=== PATIENT | male | born 1960 | race Caucasian/White ===

== ENCOUNTER 2016-09-17 16:39 | Observation (INO) ==
[2016-09-17] MEDS ORDERED: ASPIRIN 325 MG TABLET PO STA (17:08)
[2016-09-17] MEDS ORDERED: LABETALOL 20 MG/4 ML SYRINGE IV STA (17:11)
--- NOTE | 2016-09-17 17:15 | EKG Report ---
Stationary ECG Study [facility] ER Test Date: 09/17/2016 4:53:15 PM Pat Name: GRICELDA MARCELINO Department: Room: Gender: M Supply Tech: : 1960 Requested by: Jesus Alexander Order Number: [id number] Reading MD: CHEVY FELIPE Intervals [place] Rate: 90 P: 63 [place]: 168 QRS: 13 QRSD: 97 T: 62 QT: 363 QTc: 411 Interpretive Statements SINUS RHYTHM POSSIBLE RIGHT ATRIAL ENLARGEMENT POSSIBLE LEFT ATRIAL ENLARGEMENT LEFT VENTRICULAR HYPERTROPHY AND ST-T CHANGE Electronically Signed On 09-18-16 14:14:34 SMALL STOCK FACER by CHEVY FELIPE [email or web address]
--- NOTE | 2016-09-17 17:15 | Emergency Department Note ---
Arrival - Arrival Chief Complaint: Chest Pain Stated Complaint: chest pain ED Nursing Triage Note: Patient arrived via ems with complaint of chest pain. States he woke up with chest pain and had defecated on himself. Reports nausea with episode. Denies any diaphoresis. EMS reports giving fentanyl and nitro x 4. Also was given asa 325mg. Pt with pmh of htn, cva, hepatitis c. Mode of Arrival: Stretcher Limitations: No Limitations Source: Patient Time Seen by Provider: 09/17/16 16:56 - History of Present Illness HPI Narrative: Patient complains of chest pain for the past 4-5 months, worse in the last few days and much worse since this morning. He describes it as left sided, waxing and waning and sharp. He states it radiates down his left arm. He has had some nausea but no vomiting or diaphoresis. He has had some shortness of breath. It is not clear how much of this is chronic and how much is new. He has a history of COPD. The pain is made worse by movement or change in position. He has a history of high blood pressure and CHF. No history of diabetes, high cholesterol or coronary artery disease. He had a cath done 3-4 years ago which reportedly showed no obstruction. He has a long history of heavy smoking. He has a family history of CAD over the age of 55. He reports no fever, cough or other recent illness. He did have some diarrhea with incontinence this morning. Allergies/Adverse Reactions: Allergies Allergy/AdvReac Type Severity Reaction Status Date / Time No Known Allergies Allergy Unverified 04/15/16 21:47 Home Medications: Home Medications Medication Instructions Recorded Confirmed Type Atorvastatin [Lipitor] 40 mg PO BEDTIME #30 tablet 04/20/16 09/17/16 Rx Carvedilol [Coreg] 6.25 mg PO BID #30 tablet 04/20/16 09/17/16 Rx Lisinopril [Prinivil] 20 mg PO BID #60 tablet 04/20/16 09/17/16 Rx Spironolactone [Aldactone] 25 mg PO DAILY #30 tablet 04/20/16 09/17/16 Rx amLODIPine [Norvasc] 5 mg PO DAILY #30 tablet 04/20/16 09/17/16 Rx ALPRAZolam [Alprazolam] 1 mg PO TID 09/17/16 09/17/16 History Gabapentin [Gabapentin] 800 mg PO TID 09/17/16 09/17/16 History Oxycodone HCl/Acetaminophen 1 each PO QID 09/17/16 09/17/16 History [Oxycodone-Acetaminophen 10-325] Temazepam [Temazepam] 30 mg PO BEDTIME 09/17/16 09/17/16 History cloNIDine HCl [Clonidine HCl] 0.3 mg PO TID 09/17/16 09/17/16 History Review of System - Review of System 12 point system: reviewed and no additional remarkable complaints except as stated - Review of System Constitutional: Absent: diaphoresis, fever, weakness Head/Ears/Nose/Throat: Present: nasal drainage (2 months, clear). Absent: sore throat Respiratory: Absent: cough, respiratory distress, wheezing Cardiovascular: Present: chest pain. Absent: palpitations, dyspnea on exertion , orthopnea, edema, syncope Gastrointestinal: Present: nausea, diarrhea. Absent: abdominal pain, vomiting, constipation Musculoskeletal: Present: arm pain, lower back pain, leg pain Medical,Surgical,& Family Hx - Medical History Cardio: History of: Cerebrovascular Disease, CHF, Hypertension, Cardiovascular Problems No history of: CAD Neurology: History of: Cerebrovascular Accident, Seizures (May be, as a child) HEENT: History of: Eye Problem (20/200 vision) Respiratory: History of: COPD, Respiratory Problems (difficulty breathing) Genitourinary: History of: Problems (difficutly urinating) Gastrointestinal: History of: GERD, Hemorrhoids Musculoskeletal: History of: Back/Neck Problems (lower back pain) Hematology: History of: Clotting Problems (multiple left leg surgeries to remove clots) - Surgical History Abdominal Surgeries: Surgical HX of: Colonoscopy (2 years ago) - Family History Family History: Reports;: Family Heart Disease (over age 55), Family Hypertension - Social History Smoking Status: Heavy tobacco smoker Frequency of Alcohol Use: None Type of Drug Use: None Exam Physical Examination: GENERAL: Alert. No acute distress. HEENT: Normocephalic and atraumatic. There is no nasal drainage. No pharyngeal erythema or exudate. NECK: Normal inspection. Supple. No lymphadenopathy or meningismus. LUNGS: No respiratory distress. Clear to auscultation bilaterally, no wheezes, rales or rhonchi. HEART: Regular rate and rhythm. Chest: Mild left sided tenderness just inferior to the breast. ABDOMEN: Soft, nontender and nondistended with normoactive bowel sounds. BACK: Normal inspection. SKIN: Color normal. Warm and dry. EXTREMITIES: Nontender. Normal range of motion. No pedal edema. There is a scab on the dorsum of the right hand with some surrounding erythema. No drainage. NEUROLOGICAL/PSYCHIATRIC: Alert and oriented 3 with normal mood and affect. Cranial nerves normal. No motor or sensory deficit. Vital Signs: Vital Signs Temperature 97.7 F 09/17/16 16:40 Pulse Rate 72 09/17/16 20:16 Respiratory Rate 17 09/17/16 20:16 Blood Pressure 148/99 09/17/16 20:16 O2 Sat by Pulse Oximetry 100 09/17/16 20:16 Course - Reevaluation(s) Reevaluation #1: Still waiting on all lab work Time: 19:01 Reevaluation #2: Still awaiting BNP Time: 19:50 Reevaluation #3: Patient continues to have pain and some shortness of breath. His cardiac enzymes are normal. BNP is over 1000 and he has some slight edema on chest x- ray. Given his risk factors I think he needs admission for rule out. I have discussed the patient with Dr. Zamora who will see him and admit. Time: 21:14 Results - Labs CBC & BMP: 09/17/16 19:03 09/17/16 19:03 Lab Results: I have reviewed the patients labs Labs: Laboratory Tests 09/17/16 09/17/16 09/17/16 19:03 19:03 19:03 INR 1.0 D-Dimer, Quantitative <= 0.5 Total Bilirubin 0.60 AST 18 ALT 26 Troponin I 0.020 Laboratory Tests 09/17/16 19:03 B-Natriuretic Peptide 1009 H - Impressions Chest x-ray shows cardiomegaly with mild interstitial edema EKG shows a sinus rhythm at 90 with left ventricular hypertrophy and biatrial enlargement. Disposition Clinical Impression: Chest pain, CHF (congestive heart failure) Case discussed with: patient Condition: Stable Time of Disposition: 21:15
--- NOTE | 2016-09-17 17:40 | XRay Report ---
Exam: XR chest 1V portable Date: 09/17/2016 5:09 PM Indication: Chest pain Comparison: 04/15/2016 Technical:AP portable Findings: Cardiomegaly is present. ASVD is present. External cardiac leads are present. Mediastinum is intact. Mild interstitial thickening in the right infrahilar region. No pneumothorax or effusions. Impression: 1. Cardiomegaly with mild interstitial edema PROCEDURE INTERPRETED AT [facility] DEPARTMENT OF RADIOLOGY Final Report Signed by: Dr. Jesus William
[2016-09-17] MEDS ORDERED: LABETALOL 20 MG/4 ML SYRINGE IV ONE (18:50)
[2016-09-17] MEDS ORDERED: ASPIRIN 325 MG TABLET ONE (18:50)
[2016-09-17 19:13] LABS: Basophils # 0.1 10*3/uL (0.0-0.2); Basophils % 0.6 % (0.0-0.8); Eosinophils # 0.7 10*3/uL (0.0-0.87); Eosinophils % 5.4 % (0.00-10.9); Hematocrit 49.2 VOL% (42.0-52.0); Hemoglobin 16.2 GM/DL (14.0-18.0); Immature Granulocytes % 0.2 %; Immature Granulocytes Absolute 0.02 #; Lymphocytes # 4.5 10*3/uL (1.4-4.0); Lymphocytes % 35.2 % (21.2-54.2); Mean Corpuscular HGB Conc 32.9 GM/DL (32-36); Mean Corpuscular Hemoglobin 30 PG (27-34); Mean Corpuscular Volume 90.8 FL (87-102); Monocytes # 1.1 10*3/uL (0.11-0.8); Monocytes % 8.6 % (1.7-12.7); Neutrophils # 6.3 10*3/uL (1.4-7.4); Platelet Count 196 10*3/uL (130-400); Red Blood Count 5.42 10*6/uL (3.8-5.5); Red Cell Distribution Width 13.5 % (9.3-17.3); White Blood Count 12.7 10*3/uL (4.5-13.71)
[2016-09-17 19:32] LABS: D-Dimer <= 0.5 MG/L FEU; PT Patient Result 10.8 SECS; Partial Thromboplastin Time 27.5 SECS (0-40)
[2016-09-17 19:36] LABS: Albumin 3.6 G/DL (3.4-5.0); Bilirubin,Total 0.6 MG/DL (0.2-1.0); Calcium 8.8 MG/DL (8.5-10.1); Magnesium 2.1 MG/DL (1.8-2.4); Potassium 3.8 MMOL/L (3.5-5.1); Total Protein 8.4 G/DL (6.4-8.3)
[2016-09-17] MEDS ORDERED: ONDANSETRON 4 MG/2 ML VIAL IV STA (20:01)
[2016-09-17] MEDS ORDERED: MORPHINE 2 MG/1 ML SYRINGE ONE ×2 (20:01→21:23)
[2016-09-17] MEDS ORDERED: MORPHINE 2 MG/1 ML SYRINGE IV STA ×2 (20:01→21:16)
[2016-09-17] MEDS ORDERED: ONDANSETRON 4 MG/2 ML VIAL ONE (20:01)
[2016-09-17] MEDS ORDERED: FUROSEMIDE 40 MG/4 ML VIAL IV STA (21:24)
[2016-09-17] MEDS ORDERED: FUROSEMIDE 40 MG/4 ML VIAL ONE (22:02)
[2016-09-17] MEDS ORDERED: ONDANSETRON 4 MG/2 ML VIAL IV PRN (22:33)
[2016-09-17] MEDS ORDERED: traZODone 50 MG TABLET PO PRN (22:33)
[2016-09-17] MEDS ORDERED: ACETAMINOPHEN 325 MG TABLET PO PRN (22:33)
[2016-09-17] MEDS: ENOXAPARIN 40 MG/0.4 ML SYRINGE SUBCUT SCH (22:54)
[2016-09-17] MEDS ORDERED: NIFEdipine 10 MG CAPSULE PO PRN (23:08)
--- NOTE | 2016-09-17 23:10 | Hospitalist History & Physical ---
Assessment and Plan (1) Chest pain Status: Resolved Assessment and plan: The patient has uncontrolled essential hypertension. We will restart clonidine and Procardia as well as his usual home regimen. We'll rule out myocardial infarction by EKG and enzymes. We'll treat the mild pulmonary edema with a dose of Lasix. Current Visit: No Qualifiers: Chest pain type: precordial chest pain Qualified Code(s): R07.2 - Precordial pain (2) Hypertension Status: Chronic Current Visit: No Qualifiers: Hypertension type: essential hypertension Qualified Code(s): I10 - Essential (primary) hypertension (3) CHF (congestive heart failure) Status: Acute Current Visit: Yes History of Present Illness Chief complaint: left-sided chest pain History of present illness: Mr. Daily is a 56 year old male with history of moderate to severe essential hypertension. The patient presents to the hospital with left-sided chest discomfort and elevated blood pressure. The patient states that he has been taking his medications but he appears to be out of his pills. The patient's symptoms are moderate, continuous, and worsening. The patient's chest discomfort has improved in the hospital after some morphine. The patient is admitted to the hospital without fever, chills, dysuria, sputum production. He had some shortness of breath and is associated with mild pulmonary edema. Home Medications Medication Instructions Recorded Confirmed Type Atorvastatin [Lipitor] 40 mg PO BEDTIME #30 tablet 04/20/16 09/17/16 Rx Carvedilol [Coreg] 6.25 mg PO BID #30 tablet 04/20/16 09/17/16 Rx Lisinopril [Prinivil] 20 mg PO BID #60 tablet 04/20/16 09/17/16 Rx Spironolactone [Aldactone] 25 mg PO DAILY #30 tablet 04/20/16 09/17/16 Rx amLODIPine [Norvasc] 5 mg PO DAILY #30 tablet 04/20/16 09/17/16 Rx ALPRAZolam [Alprazolam] 1 mg PO TID 09/17/16 09/17/16 History Gabapentin [Gabapentin] 800 mg PO TID 09/17/16 09/17/16 History Oxycodone HCl/Acetaminophen 1 each PO QID 09/17/16 09/17/16 History [Oxycodone-Acetaminophen 10-325] Temazepam [Temazepam] 30 mg PO BEDTIME 09/17/16 09/17/16 History cloNIDine HCl [Clonidine HCl] 0.3 mg PO TID 09/17/16 09/17/16 History Allergies Allergy/AdvReac Type Severity Reaction Status Date / Time No Known Allergies Allergy Unverified 04/15/16 21:47 Medical,Surgical,& Family Hx - Medical History Cardio: History of: Cerebrovascular Disease, CHF, Hypertension, Cardiovascular Problems No history of: CAD Neurology: History of: Cerebrovascular Accident, Seizures (May be, as a child) HEENT: History of: Eye Problem (20/200 vision) Respiratory: History of: COPD, Respiratory Problems (difficulty breathing) Genitourinary: History of: Problems (difficutly urinating) Gastrointestinal: History of: GERD, Hemorrhoids Musculoskeletal: History of: Back/Neck Problems (lower back pain) Hematology: History of: Clotting Problems (multiple left leg surgeries to remove clots) - Surgical History Abdominal Surgeries: Surgical HX of: Colonoscopy (2 years ago) - Family History Family History: Reports;: Family Heart Disease (over age 55), Family Hypertension - Social History Smoking Status: Light tobacco smoker Frequency of Alcohol Use: None Type of Drug Use: None Marital Status: Lives With:: Alone Functional capacity: independent ambulation 12 point system: reviewed and no additional remarkable complaints except as stated Exam - Constitutional Vitals: Period Temp Pulse Resp BP Sys/Guzman Pulse Ox Last 24 Hr 71 22 148/95 99 Exam: Constitutional System: Mild distress. No tremulousness. Head: Normocephalic, atraumatic. Ears, Nose and Throat System: No evidence of Otitis or Mastoiditis. No epistaxis or discharge Eyes System: Pupils equal, round, and reactive. Extraocular muscles intact. Neck: Supple, without adenopathy, plus jugular venous distention. No thyromegaly, neck mass, or prior surgery apparent. Respiratory System: Chest he rales in bases to auscultation. Cardiovascular System: Heart with regular rate and rhythm. Positive S4 murmur. GI System: Abdomen soft, nontender. Normoactive bowel sounds present. Musculoskeletal System: limbs with no pedal edema. Full distal pulses. There is a healing wound on the right index finger at the base of the finger Neurological System: No discernable sensory deficit. No aphasia Psychiatric System: Conversation is rational Results - Labs CBC & BMP: 09/17/16 19:03 09/17/16 19:03 Lab Results: I have reviewed the past 24 hour labs - Diagnostic Findings Procedure: Chest x-ray: image reviewed by me (mild pulmonary edema)
[2016-09-18 08:00] LABS: Calcium 9.2 MG/DL (8.5-10.1); Magnesium 2.3 MG/DL (1.8-2.4); Osmolality,Calculated 288.8 MOS/KG (273-304); Troponin I Only 0.016 NG/ML (0.00-0.045)
[2016-09-18] MEDS: amLODIPine 5 MG TABLET PO SCH (08:50)
[2016-09-18] MEDS: oxyCODONE/ACETAMINOPHEN 5-325 MG TABLET PO SCH ×3 (08:50→17:02)
[2016-09-18] MEDS: GABAPENTIN 400 MG CAPSULE PO SCH ×3 (08:50→21:50)
[2016-09-18] MEDS: LISINOPRIL 20 MG TABLET PO SCH ×2 (08:52→21:44)
[2016-09-18] MEDS: PANTOPRAZOLE 40 MG TABLET PO SCH (08:53)
[2016-09-18] MEDS: ALPRAZolam 0.5 MG TABLET PO SCH ×3 (08:53→21:50)
[2016-09-18] MEDS: CARVEDILOL 6.25 MG TABLET PO SCH ×2 (08:57→21:43)
[2016-09-18] MEDS ORDERED: SPIRONOLACTONE 25 MG TABLET PO SCH (09:00)
--- NOTE | 2016-09-18 09:10 | Hospitalist Progress Note ---
Assessment and Plan - Time spent with patient Time spent with patient: Greater than 30 minutes (1) Chest pain Status: Acute Assessment and plan: Troponins are unremarkable. Continues to have left sided chest pain. Cardiology has been consulted. Current Visit: Yes (2) Hypertension Status: Chronic Assessment and plan: Well controlled. Current Visit: No Qualifiers: Hypertension type: essential hypertension Qualified Code(s): I10 - Essential (primary) hypertension (3) CHF (congestive heart failure) Status: Acute Assessment and plan: Stable. Current Visit: Yes Hospitalist: Subjective Interval history: Complains of chest pain, left sided currently. Exam - Constitutional Vitals: Period Temp Pulse Resp BP Sys/Guzman Pulse Ox Last 24 Hr 96.8 F 71-102 13-22 138-174/95-111 96-99 General appearance: no acute distress - Head Head exam: Present: normocephalic, atraumatic - Eye Eye exam: Present: EOMI Pupils: Present: IDANE - ENT ENT exam: Present: normal exam - Neck Neck exam: Present: normal inspection - Respiratory Respiratory exam: Present: clear to auscultation bilaterally. Absent: rhonchi, wheezes - Cardiovascular Cardiovascular exam: Present: regular rate and rhythm. Absent: gallop, rubs, systolic murmur - GI/Abdominal GI/Abdominal exam: Present: normal bowel sounds, soft. Absent: distended, firm , guarding, tenderness, rebound - Extremities Exam Extremities exam: Present: normal inspection. Absent: calf tenderness, edema Results - Labs CBC & BMP: 09/17/16 19:03 09/18/16 06:46 Lab Results: I have reviewed the past 24 hour labs
[2016-09-18] MEDS ORDERED: KETOROLAC 30 MG/1 ML VIAL IM ONE (09:41)
[2016-09-18] MEDS ORDERED: CYCLOBENZAPRINE 10 MG TABLET PO PRN (09:42)
[2016-09-18 10:10] LABS: Barbiturates Screen,Urine Negative (Negative); Benzodiazepines Screen,Urine Positive (Negative); Cannabinoid Screen,Urine Negative (Negative); Opiate Screen,Urine Positive (Negative); Phencyclidine Screen,Urine Negative (Negative)
--- NOTE | 2016-09-18 15:21 | Cardiology Consult Note ---
Mary, Margie Thomson RN, am scribing for, and in the presence of, Betty Pepper MD 15:20. Assessment and Plan - Time spent with patient Time spent with patient: Greater than 30 minutes (1) Chest pain Status: Acute Assessment and plan: Chest pain is atypical in nature. He does have concerning risk factors for possible heart disease. We will check a urine drug screen, recheck echocardiogram. Several months ago he was admitted and was positive for opiates and methamphetamines. We will make sure this could not be a contributing factor to his chest pain. In the meantime, he will be given a heating pad, Flexeril and Toradol to help relieve his muscle spasms. Current Visit: Yes (2) Hypertension Status: Chronic Assessment and plan: Blood pressure is currently 160/112. He has not yet received his morning blood pressure medicines. We will monitor and adjust as needed. Current Visit: No Qualifiers: Hypertension type: essential hypertension Qualified Code(s): I10 - Essential (primary) hypertension (3) CHF (congestive heart failure) Status: Acute Assessment and plan: BNP 1009 upon admission. He did receive 80 mg of Lasix IV in the emergency room. So far I do not see any record of urine output in the chart. Creatinine is 1.1. Current Visit: Yes (4) COPD (chronic obstructive pulmonary disease) Status: Chronic Assessment and plan: Currently on room air maintaining oxygen saturations greater than 96%. Current Visit: Yes (5) GERD (gastroesophageal reflux disease) Status: Chronic Assessment and plan: Continue Protonix. Current Visit: Yes (6) History of CVA (cerebrovascular accident) Status: Acute Assessment and plan: Reports he has had 2 prior stroke with residual right-sided weakness. Current Visit: Yes (7) Tobacco abuse Status: Acute Assessment and plan: Currently smokes 2-3 cigarettes per day. Reports he used to smoke 2-3 packs per day for over 10 years. He has been smoking for approximately 40 years. Current Visit: Yes History of Present Illness - Data of Consult Patient: new to practice (he has seen Dr. Nguyen in the past) Consult date: 09/18/16 Requesting Physician: Veto Zamora - Consult Narrative Reason for consult: chest pain History of present illness: Mr. Daily is a 56 year old male who has been seen by Dr. Nguyen in the past. He reports he has a primary care provider. He has a history of congestive heart failure, cerebrovascular disease, hypertension, chronic obstructive pulmonary disease, gastroesophageal reflux disease with esophagitis/ gastritis in 1998, and tobacco use. He has risk factors significant for: Drug abuse including opiates and methamphetamines, hypertension, tobacco use, and sedentary lifestyle. He presents to the hospital with complaints of left-sided chest pain, congestive heart failure, and uncontrolled hypertension. He reports his left-sided chest pain is sharp in quality and it radiates to his shoulder and arm. He reports it is also associated with shortness of breath and diaphoresis. He also complains of getting dizzy when he moves too fast. He reports he has had these symptoms for the last week. His pain is reproducible upon palpation of the left trapezius muscle. He reports nothing he has been given has helped his pain. He can identify no aggravating factors. He denies recent fever, chills, palpitations, lightheadedness, syncope. He reports he currently smokes 2-3 cigarettes a day, but previously smoked 2-3 packs per day for over 10 years. He has been smoking for over 40 years. EKG shows sinus rhythm with left ventricular hypertrophy. His troponins are normal. He was previously hospitalized back in March 2016 with similar complaints and symptoms and received cardiology consultation at that time. He was positive for methamphetamines during the March admission. According to records he had a negative heart catheterization in 1998. He reports he recently had a stress test at the hospital but I see no records of this. Previous echocardiogram done 04/17/2016 revealed 2+ left atrial enlargement, 2+ left ventricular hypertrophy, ejection fraction 30-35%, 1+ mitral regurgitation. Blood pressure is currently elevated. He has not been given his morning medicines yet this morning since he is nothing by mouth. We will recheck a urine drug screen. We will go ahead and give him his morning blood pressure medicines but hold off on Coreg in anticipation of possible stress test. CC: Na Mcqueen MD - Home Medications and Allergies Home Medications: Home Medications Medication Instructions Recorded Confirmed Type Atorvastatin [Lipitor] 40 mg PO BEDTIME #30 tablet 04/20/16 09/17/16 Rx Carvedilol [Coreg] 6.25 mg PO BID #30 tablet 04/20/16 09/17/16 Rx Lisinopril [Prinivil] 20 mg PO BID #60 tablet 04/20/16 09/17/16 Rx Spironolactone [Aldactone] 25 mg PO DAILY #30 tablet 04/20/16 09/17/16 Rx amLODIPine [Norvasc] 5 mg PO DAILY #30 tablet 04/20/16 09/17/16 Rx ALPRAZolam [Alprazolam] 1 mg PO TID 09/17/16 09/17/16 History Gabapentin [Gabapentin] 800 mg PO TID 09/17/16 09/17/16 History Oxycodone HCl/Acetaminophen 1 each PO QID 09/17/16 09/17/16 History [Oxycodone-Acetaminophen 10-325] Temazepam [Temazepam] 30 mg PO BEDTIME 09/17/16 09/17/16 History cloNIDine HCl [Clonidine HCl] 0.3 mg PO TID 09/17/16 09/17/16 History Allergies/Adverse Reactions: Allergies Allergy/AdvReac Type Severity Reaction Status Date / Time No Known Allergies Allergy Unverified 04/15/16 21:47 - Constitutional Constitutional: Absent: anorexia, chills, daytime sleepiness, excessive sweating , fever(s), frequent falls, headache(s), increased appetite, lethargy, malaise, night sweats, stops breathing during sleep, weakness, weight gain, weight loss - EENT Eyes: Absent: blurry vision, diplopia, loss of vision Ears: Absent: decreased hearing, ear discharge, ear pain Nose, mouth and throat: Absent: dysphagia, epistaxis, headache(s), hoarseness, lip swelling, nasal congestion, neck mass, neck pain, sinus pressure, sore throat, throat swelling, tongue swelling, vertigo - Cardiovascular Cardiovascular: Present: as per HPI, chest pain at rest, chest pain with activity, dyspnea, dyspnea on exertion, edema, radiating jaw, neck or arm pain. Absent: claudication, diaphoresis, lightheadedness, orthopnea, palpitations, PND - Respiratory Respiratory: Present: as per HPI, dyspnea, dyspnea on exertion. Absent: cough, hemoptysis, wheezing, snoring, pain on inspiration - Gastrointestinal Gastrointestinal: Absent: abdominal pain, bloating, change in bowel habits, constipation, diarrhea, dysphagia, heartburn, hematochezia, loose stools, melena , nausea, vomiting - Genitourinary Genitourinary: Absent: difficulty urinating, dysuria, flank pain, hematuria, nocturia, urinary incontinence - Musculoskeletal Musculoskeletal: Absent: arthralgias, back pain, joint swelling, limited range of motion, muscle cramps, muscle weakness, myalgias - Neurological Neurological: Present: dizziness. Absent: abnormal gait, abnormal speech, behavioral changes, confusion, convulsions, disequilibrium, focal weakness, frequent falls, headache(s), memory loss, numbness, paresthesias, radicular pain , syncope, tremor(s) - Psychiatric Psychiatric: Absent: anxiety, confusion, depression, memory loss, panic attacks - Endocrine Endocrine: Absent: cold intolerance, fatigue, heat intolerance - Hematologic/Lymphatic Hematologic/Lymphatic: Absent: easy bleeding, easy bruising, lymphadenopathy Medical,Surgical,& Family Hx - Medical History Cardio: History of: Cerebrovascular Disease, CHF, Hypertension, Cardiovascular Problems No history of: CAD Psychological: History of: Depression Neurology: History of: Cerebrovascular Accident, Seizures (May be, as a child) HEENT: History of: Eye Problem (20/200 vision) Respiratory: History of: Bronchitis, COPD, Respiratory Problems (difficulty breathing) Genitourinary: History of: Problems (difficutly urinating) Gastrointestinal: History of: GERD, Hemorrhoids Musculoskeletal: History of: Back/Neck Problems (lower back pain), Herniated Disk Hematology: History of: Clotting Problems (multiple left leg surgeries to remove clots) No history of: Blood Transfusion Reaction Other: No history of: Anesthesia Reactions - Surgical History Cardiac Surgeries: Sugical HX of: Cardiac Catheterization Abdominal Surgeries: Surgical HX of: Appendectomy (1983), Colonoscopy (2 years ago) - Family History Family History: Reports;: Family Heart Disease (over age 55), Family Hypertension - Social History Smoking Status: Light tobacco smoker Frequency of Alcohol Use: None Type of Drug Use: None Physical Examination Vital Signs Temp Pulse Resp BP Pulse Ox 97.7 F 104 H 27 H 183/126 98 09/17/16 16:40 09/17/16 16:40 09/17/16 16:40 09/17/16 16:40 09/17/16 16:40 General: Present: Appears Well (disheveled), Other (mild distress with being in mild pain) HEENT: Present: Normocephaly, Mucus Membranes Moist Neck: Present: Supple Neck, Midline Trachea, No Masses, No Bruit, No Lymphadenopathy, No Thyromegaly Cardiac: Present: Reg Rate and Rhythm, No Murmur Lungs: Present: Normal Exam, Normal Breath Sounds, No Wheeze, Rales, Rhonchi Neuro: Present: Grossly Intact. Absent: Resting Tremor, Essential Tremor Abdomen: Present: Soft, Active Bowel Sounds, No Masses, No Pulsations/Bruits, Non-Tender Skin: Present: Clear. Absent: Rash Musculoskeletal: Present: No Fluid Collection, No Pain, Normal Range of Motion Extremities: Present: No Clubbing, No Cyanosis, No Edema, Normal Upper Extr. Pulses, Normal Lower Extr. Pulses Result/EKG - Labs CBC & BMP: 09/17/16 19:03 09/18/16 06:46 Lab Results: I have reviewed the past 24 hour labs Labs: Laboratory Results - last 24 hr 09/17/16 09/18/16 23:16 06:46 Sodium 144 Potassium 4.0 Chloride 107 Carbon Dioxide 25 Anion Gap 16.0 H BUN 22 H Creatinine 1.10 GFR Calculation 81 BUN/Creatinine Ratio 20.00 Glucose 96 Calculated Osmolality 288.8 Calcium 9.2 Magnesium 2.3 Total Creatine Kinase 84 Troponin I 0.018 0.016 - EKG EKG results: interpreted by me, sinus rhythm (with LVH) I, Betty Pepper MD, personally performed the services described in this documentation, ascribed by Margie Thomson RN in my presence, and it is both accurate and complete 520 .
[2016-09-18] MEDS ORDERED: TEMAZEPAM 15 MG CAPSULE PO SCH (21:00)
[2016-09-18] MEDS ORDERED: ATORVASTATIN 40 MG TABLET PO SCH (21:00)
--- NOTE | 2016-09-18 22:00 | ECHO Report ---
Gust[facility] Daily Exam Date: 09/18/2016 13:18 Referring Physician: Technologist: Linn MELVIN Age: 56 Ht (in): Wt (lb): Gender: M Exam Location: [facility] Echo Indications: Hx. CVA, GERD, COPD, CHF, Chest pain BP: / HR: Rhythm: Sinus Technical Quality: Poor IMPRESSIONS Normal LV systolic function, ejection fraction 50%. Grade 14/4 diastolic dysfunction. Moderate to severe concentric left ventricular hypertrophy. Mild mitral and tricuspid regurgitation. MEASUREMENTS (Male / Female) Normal Values 2D ECHO LV Diastolic Diameter PLAX 3.3 cm 4.2 - 5.9 / 3.9 - 5.3 cm LV Systolic Diameter PLAX 2.3 cm LV Fractional Shortening PLAX 32.0 % IVS Diastolic Thickness 2.0 cm 0.6 - 1.0 / 0.6 - 0.9 cm LVPW Diastolic Thickness 1.4 cm 0.6 - 1.0 / 0.6 - 0.9 cm Aortic Root Diameter 2.6 cm LA Systolic Diameter LX 3.6 cm 3.0 - 4.0 / 2.7 - 3.8 cm DOPPLER TR Peak Velocity 170.0 cm/s TR Peak Gradient 11.6 mmHg FINDINGS Left Ventricle Severely increased septal wall thickness. Moderate concentric left ventricular hypertrophy with diastolic dysfunction. Left ventricular ejection fraction is estimated at 50%. Right Ventricle Normal right ventricular size. Right Atrium Normal right atrial size. Left Atrium Normal left atrial size. Mitral Valve Mildly thickened mitral valve with mild mitral regurgitation. Aortic Valve Aortic valve sclerosis without stenosis or regurgitation. Tricuspid Valve Morphologically normal tricuspid valve. Mild tricuspid valve regurgitation. Tricuspid regurgitation velocities suggest a PAP of 11.6 mmHg + RAP. Pulmonic Valve Pulmonic valve not well visualized. Pericardium No pericardial effusion. Aorta Normal size aortic root and proximal ascending aorta. Betty Pepper MD (Electronically Signed) Final Date: 18 September 2016 21:58
[2016-09-18] MEDS: ENOXAPARIN 40 MG/0.4 ML SYRINGE SUBCUT SCH (23:33)
[2016-09-19] MEDS: oxyCODONE/ACETAMINOPHEN 5-325 MG TABLET PO SCH ×4 (00:34→18:08)
[2016-09-19 05:16] LABS: Basophils # 0.1 10*3/uL (0.0-0.2); Basophils % 0.6 % (0.0-0.8); Eosinophils # 0.8 10*3/uL (0.0-0.87); Eosinophils % 6.8 % (0.00-10.9); Hematocrit 47.7 VOL% (42.0-52.0); Hemoglobin 15.5 GM/DL (14.0-18.0); Immature Granulocytes % 0.3 %; Immature Granulocytes Absolute 0.03 #; Lymphocytes # 3.8 10*3/uL (1.4-4.0); Lymphocytes % 33.2 % (21.2-54.2); Mean Corpuscular HGB Conc 32.5 GM/DL (32-36); Mean Corpuscular Hemoglobin 30 PG (27-34); Mean Corpuscular Volume 91.9 FL (87-102); Mean Platelet Volume 10.6 FL (9.6-12.0); Neutrophils # 5.8 10*3/uL (1.4-7.4); Neutrophils % 50.1 % (38.7-73.9); Platelet Count 196 10*3/uL (130-400); Red Blood Count 5.19 10*6/uL (3.8-5.5); Red Cell Distribution Width 13.8 % (9.3-17.3); White Blood Count 11.5 10*3/uL (4.5-13.71)
[2016-09-19 05:54] LABS: Calcium 8.4 MG/DL (8.5-10.1); Osmolality,Calculated 294.8 MOS/KG (273-304); Potassium 4.3 MMOL/L (3.5-5.1)
[2016-09-19] MEDS: ALPRAZolam 0.5 MG TABLET PO SCH ×2 (09:52→15:13)
[2016-09-19] MEDS: PANTOPRAZOLE 40 MG TABLET PO SCH (09:52)
[2016-09-19] MEDS: amLODIPine 5 MG TABLET PO SCH (09:54)
[2016-09-19] MEDS: CARVEDILOL 6.25 MG TABLET PO SCH (09:54)
[2016-09-19] MEDS: GABAPENTIN 400 MG CAPSULE PO SCH ×2 (09:54→15:13)
--- NOTE | 2016-09-19 10:14 | Hospitalist Progress Note ---
Assessment and Plan - Time spent with patient Time spent with patient: Greater than 30 minutes (1) Chest pain Status: Acute Assessment and plan: Troponins are unremarkable. Continues to have left sided chest pain. I suspect he is med seeking. Cardiology on board. Current Visit: Yes (2) Hypertension Status: Chronic Assessment and plan: Well controlled. Current Visit: No Qualifiers: Hypertension type: essential hypertension Qualified Code(s): I10 - Essential (primary) hypertension (3) CHF (congestive heart failure) Status: Acute Assessment and plan: Stable. Current Visit: Yes Hospitalist: Subjective Interval history: Patient appeared comfortable as I walked in the room, smiling as he spread peanut butter over his crackers, however when he noticed me he began panting and complaining of chest pain requesting an increase in his pain medications. No overnight events. Exam - Constitutional Vitals: Period Temp Pulse Resp BP Sys/Guzman Pulse Ox Last 24 Hr 97.1 F-98.1 F 73-105 12-22 90-116/61-88 91-96 General appearance: no acute distress - Head Head exam: Present: normocephalic, atraumatic - Eye Eye exam: Present: EOMI Pupils: Present: DIANE - ENT ENT exam: Present: normal exam - Neck Neck exam: Present: normal inspection - Respiratory Respiratory exam: Present: clear to auscultation bilaterally. Absent: rhonchi, wheezes - Cardiovascular Cardiovascular exam: Present: regular rate and rhythm. Absent: gallop, rubs, systolic murmur - GI/Abdominal GI/Abdominal exam: Present: normal bowel sounds, soft. Absent: distended, firm , guarding, tenderness, rebound - Extremities Exam Extremities exam: Present: normal inspection. Absent: calf tenderness, edema Results - Labs CBC & BMP: 09/19/16 05:04 09/19/16 05:04 Lab Results: I have reviewed the past 24 hour labs
--- NOTE | 2016-09-19 11:20 | Cardiology Progress Note ---
Assessment and Plan (1) Chest pain Status: Acute Assessment and plan: Chest pain is atypical in nature. It appears to be musculoskeletal in nature. Current Visit: Yes (2) Hypertension Status: Chronic Assessment and plan: Improved control. Current Visit: No Qualifiers: Hypertension type: essential hypertension Qualified Code(s): I10 - Essential (primary) hypertension (3) COPD (chronic obstructive pulmonary disease) Status: Chronic Assessment and plan: Currently on room air maintaining oxygen saturations greater than 96%. Current Visit: Yes (4) GERD (gastroesophageal reflux disease) Status: Chronic Assessment and plan: Continue Protonix. Current Visit: Yes (5) History of CVA (cerebrovascular accident) Status: Chronic Assessment and plan: Reports he has had 2 prior stroke with residual right-sided weakness. Current Visit: Yes (6) Tobacco abuse Status: Chronic Assessment and plan: Currently smokes 2-3 cigarettes per day. Reports he used to smoke 2-3 packs per day for over 10 years. He has been smoking for approximately 40 years. Current Visit: Yes (7) Drug use Status: Chronic Assessment and plan: The negative health effects have been discussed and the importance of cessation has been addressed. Current Visit: Yes Cardiology - PN: Subj Interval history: In general the evening was uneventful. The patient continues to have the same symptoms that brought him to the hospital, he declares overall unchanged. There is persistent reproducible left trapezius, shoulder and upper chest discomfort. It appears to be musculoskeletal. He has ruled out for myocardial infarction. His urine drug screen is positive for methamphetamines. Overall echocardiogram shows preserved systolic function. In general, he does not appear to have the presentation of acute coronary syndrome. From a cardiac standpoint he can be discharged home whenever he is felt to be stable from a medical standpoint. We will sign off. Exam (Progress Note) - Constitutional Vitals: Period Temp Pulse Resp BP Sys/Guzman Pulse Ox Last 24 Hr 97.1 F-98.1 F 73-105 12-22 90-116/61-88 91-96 Exam: General appearance: normal weight, no acute distress - Head Head exam: Present: normal inspection, normocephalic, atraumatic. Absent: hematoma, laceration - Eye Eye exam: Present: EOMI. Absent: conjunctival injection, nystagmus, periorbital swelling, scleral icterus, laceration to eyelids Pupils: Present: PERRL. Absent: constricted, dilated, fixed, irregular, unequal - ENT ENT exam: Present: normal exam, normal external ear exam - Neck Neck exam: Present: normal inspection. Absent: lymphadenopathy, meningismus, tenderness, thyromegaly - Respiratory Respiratory exam: Present: clear to auscultation bilaterally. Absent: accessory muscle use, chest wall tenderness - Cardiovascular Cardiovascular exam: Present: regular rate and rhythm. Absent: carotid bruit, gallop, JVD, rubs - GI/Abdominal GI/Abdominal exam: Present: normal bowel sounds, soft. Absent: distended, firm , guarding, hernia, mass, tenderness, rebound. - Extremities Exam Extremities exam: Present: normal inspection, normal capillary refill. Absent: calf tenderness, edema - Back Exam Back exam: Present: normal inspection. Absent: muscle spasm, vertebral tenderness - Neurological Exam Neurological exam: Present: alert, oriented X3, grossly intact without resting or intention tremor - Psychiatric Psychiatric exam: Present: normal affect, normal mood - Skin Skin exam: Present: normal color, warm, dry, intact. Absent: cyanosis, diaphoretic, rash, urticaria Result/EKG - Labs CBC & BMP: 09/19/16 05:04 09/19/16 05:04 Lab Results: I have reviewed the past 24 hour labs Labs: Laboratory Results - last 24 hr 09/18/16 09/19/16 09/19/16 21:22 05:04 05:04 WBC 11.5 RBC 5.19 Hgb 15.5 Hct 47.7 MCV 91.9 MCH 30 MCHC 32.5 RDW 13.8 Plt Count 196 MPV 10.6 Neut % (Auto) 50.1 Lymph % (Auto) 33.2 [place] % (Auto) 9.0 Eos % (Auto) 6.8 Baso % (Auto) 0.6 Neut # (Auto) 5.8 Lymph # (Auto) 3.8 [place] # (Auto) 1.0 H Eos # (Auto) 0.8 Baso # (Auto) 0.1 Immature Gran % 0.3 Nucleated RBC % 0.0 Immature Gran # 0.03 Nucleated RBCs # 0.00 Sodium 144 Potassium 4.3 Chloride 111 H Carbon Dioxide 23 Anion Gap 14.3 BUN 37 H D Creatinine 2.00 H GFR Calculation 39 BUN/Creatinine Ratio 18.00 Glucose 98 POC Glucose 151 H Calculated Osmolality 294.8 Calcium 8.4 L
--- NOTE | 2016-09-19 13:06 | Discharge Summary ---
Hospital Course - Hospital Course Hospital Course: Non cardiac chest pain: Mr Daily presented with atypical chest pain. Drug screen positive for Opiates, Amphetamine, and Benzodiazepines. Cardiology was consulted, and pain was deemed atypical, non cardiac. Serial troponins negative. Patient will be discharged home with no changes to his meds. - Time spent with patient Time with patient DS: Greater than 30 minutes Diagnosis - Discharge Diagnosis (1) Chest pain Status: Acute (2) Hypertension Status: Chronic (3) CHF (congestive heart failure) Status: Acute Discharge Plan - Discharge Data Disposition: Disch To Home/Self Care Condition at Discharge: Stable Discharge Diet: advance to your usual diet Activity: resume usual activities as tolerated - Discharge Medications Continue Atorvastatin [Lipitor] 40 mg PO BEDTIME #30 tablet Carvedilol [Coreg] 6.25 mg PO BID #30 tablet Lisinopril [Prinivil] 20 mg PO BID #60 tablet Spironolactone [Aldactone] 25 mg PO DAILY #30 tablet amLODIPine [Norvasc] 5 mg PO DAILY #30 tablet Temazepam 30 mg PO BEDTIME Gabapentin 800 mg PO TID Oxycodone HCl/Acetaminophen [Oxycodone-Acetaminophen 10-325] 1 each PO QID cloNIDine HCl [Clonidine HCl] 0.3 mg PO TID ALPRAZolam [Alprazolam] 1 mg PO TID - Follow Up or Referral - Forms/Instructions Exam - Constitutional Vitals: Period Temp Pulse Resp BP Sys/Guzman Pulse Ox Last 24 Hr 97.1 F-98.2 F 85-105 12-22 90-116/61-98 91-96 General appearance: normal weight - Head Head exam: Present: normal inspection - Eye Eye exam: Present: EOMI Pupils: Present: DIANE - ENT ENT exam: Present: normal exam - Neck Neck exam: Present: normal inspection - Respiratory Respiratory exam: Present: clear to auscultation bilaterally - Cardiovascular Cardiovascular exam: Present: regular rate and rhythm - GI/Abdominal GI/Abdominal exam: Present: normal bowel sounds - Extremities Exam Extremities exam: Present: normal inspection Discharge Results Labs on day of discharge: Labs from last 24 hours 09/19/16 09/19/16 09/18/16 05:04 05:04 21:22 WBC 11.5 RBC 5.19 Hgb 15.5 Hct 47.7 MCV 91.9 MCH 30 MCHC 32.5 RDW 13.8 Plt Count 196 MPV 10.6 Neut % (Auto) 50.1 Lymph % (Auto) 33.2 [place] % (Auto) 9.0 Eos % (Auto) 6.8 Baso % (Auto) 0.6 Neut # (Auto) 5.8 Lymph # (Auto) 3.8 [place] # (Auto) 1.0 H Eos # (Auto) 0.8 Baso # (Auto) 0.1 Immature Gran % 0.3 Nucleated RBC % 0.0 Immature Gran # 0.03 Nucleated RBCs # 0.00 Sodium 144 Potassium 4.3 Chloride 111 H Carbon Dioxide 23 Anion Gap 14.3 BUN 37 H D Creatinine 2.00 H GFR Calculation 39 BUN/Creatinine Ratio 18.00 Glucose 98 POC Glucose 151 H Calculated Osmolality 294.8 Calcium 8.4 L DS: Provider Date of admission: 09/17/16 21:21 Primary care physician: . No PCP Attending physician on admission: Na Mcqueen MD Consults: 09/17/16 22:33 Consult to Physician [CONS] Routine Comment: chest pain Consulting Provider: Betty Pepper Discharging clinician: Na Mcqueen MD Expected date of discharge: 09/19/16
[2016-09-19 16:58] VITALS: BP 111/79
== END 2016-09-19 19:43 | disposition home or self-care (01) ==
LOC: EDBD → EDUNIT# → N.EDINP 16:39 → N.ED 16:39 → N.CC 22:19
PROVIDERS: ADMIT Internal Medicine; ATTEND Internal Medicine